=== PATIENT | female | born 1945 | race Caucasian/White ===

== ENCOUNTER 2016-05-04 15:21 | Emergency (ER) | payer OTHER ==
[~2016-05-04] VITALS: Ht 157.5 cm; Wt 104.9 kg
[~2016-05-04 15:21] MED LIST: ACIDOPHILUS-PE1 EACH PO; ACIDOPHILUS1 EAC2 PO; ADVAIR 100/501 DISK IH; ADVAIR 250/501 DISK IH; ADVAIR 500/501 DISK IH; ASPIR-TRIN325 MG PO; AVENTYL,PAMELOR25 MG PO; CALCIUM 500 +1 EACH PO; CALTRATE 6001 TABLE1 PO; CALTRATE600 MG PO; CELEXA40 MG PO; CHLORDIAZEPOXI1 EACH PO; CHLORDIAZEPOXIDE PO; CHOLESTYRAMINE P4 GM PO; CLIDINIUM PO; DRAMAMINE50 MG PO; ECOTRIN325 MG PO; ELAVIL10 MG PO; Ecotrin PO; FEOSOL325 MG PO; FIORICET 50-301 EACH PO; FISH OIL 1,0001 EACH PO; GLUCOPHAGE1000 M1 PO; Glucophage PO; HUMULIN R100 UNITS/; HUMULIN R100 UNITS/ SC; Humulin R SC; INSULIN PUMP SCCONT; IPRATR-ALBUTEROL3 ML IH; K-Dur PO; LANTUS 10100 UNITS/ SC; LASIX40 MG PO; LEVEMIR FL100 UNIT/1 SC; LEXAPRO10 MG PO; LEXAPRO20 MG PO; LIBRAX, CLI1 CAPSULE PO; LISINOPRIL40 MG PO; LITE COAT ASPI325 M1 PO; LORAZEPAM0.5 MG PO; METFORMIN HCL1000 M1 PO; METFORMIN HCL1000 MG PO; METOPROLOL SUC100 MG PO; NEXIUM 24HR20 MG PO; NOVOLIN N100 UNIT/1 SC; NOVOLIN N100 UNITS/ SC; NOVOLIN N100 UNITS/ SQ; NOVOLIN,HU100 UNITS1 SC; NOVOLOG PE100 UNITS/ SC; PREVACID 24HR15 MG PO; PRILOSEC20 MG PO; PROVENTIL HFA6.7 GM IH; PROVENTIL,200 INHALA IH; SIMVASTATIN40 MG PO; SINGULAIR10 MG PO; Singulair PO; THIAMINE,VITAM100 MG PO; TOVIAZ4 MG PO; TRAMADOL HCL50 MG PO; VITAMIN B-1100 MG PO; VITAMIN B-6100 MG PO; VITAMIN E400 UNIT PO; ZESTRIL,PRINIVI40 M1 PO; ZOCOR80 M1 PO; ZOFRAN ODT4 MG PO; Zestril,Prinivil PO; Zocor PO; celeXA PO
[2016-05-04 15:57] LABS: POINT-OF-CARE METER ID UU13113778; POINT-OF-CARE USER ID STWBNM43
[2016-05-04 16:30] LABS: HEMATOCRIT 40.6 % (36.0-46.0); MCH 28.8 PG (29.0-34.0); MCHC 34.5 G/DL (30.0-36.0); MCV 83.5 FL (83-99); MEAN PLAT.VOLUME 11.1 uM^3 (9.5-12.4); PLATELET COUNT 137 K/uL (156-360); RBC DIS.WIDTH-CV 14.3 % (11.8-14.6); RBC DIS.WIDTH-SD 43.1 % (39-53); RED BLOOD COUNT 4.86 M/uL (3.80-5.20)
[2016-05-04 16:37] LABS: CHLORIDE 96 mEq/L (99-109); POTASSIUM 4.3 mEq/L (3.7-5.4); SODIUM 130 mEq/L (136-147)
[2016-05-04 16:42] LABS: ALKALINE PHOSPHATASE 79 IU/L (3-129)
[2016-05-04 16:43] LABS: GFR ESTIMATE (CALCULATED) > 59 mL/min/
[2016-05-04 16:44] LABS: UREA NITROGEN (BUN) 18 mg/dL (9-23)
[2016-05-04 17:08] LABS: GLUCOSE 443 mg/dL (70-99)
[2016-05-04 17:17] LABS: ANION GAP 12 MEQ/L (2-14)
[2016-05-04 17:18] LABS: TOTAL BILIRUBIN 0.8 mg/dL (0.0-1.0)
[2016-05-04 20:27] VITALS: BP 109/62
== END 2016-05-04 20:29 | disposition home or self-care (01) ==
LOC: EME 15:21
PROVIDERS: Emergency Medicine
DX: E11.65 Type 2 diabetes mellitus with hyperglycemia (principal); Z96.41 Presence of insulin pump (external) (internal); Z79.4 Long term (current) use of insulin; E78.5 Hyperlipidemia, unspecified; I10 Essential (primary) hypertension; Z87.442 Personal history of urinary calculi; K21.9 Gastro-esophageal reflux disease without esophagitis
CPT/HCPCS: 80053; 81003; 82948; 85027; 99281; 99284; J1815; J7030

== ENCOUNTER 2016-07-03 11:41 | Inpatient (IN) | payer OTHER ==
[~2016-07-03] VITALS: Ht 160 cm; Wt 103.0 kg
[2016-07-03] VITALS (13 sets, daily range): BP systolic 137–216; BP diastolic 58–108
[2016-07-03 12:20] LABS: EOSINOPHIL (%) 1.5 % (0-5); EOSINOPHIL COUNT 0.1 K/uL (0-0.3); IMMATURE GRANULOCYTE (%) 0.1 % (0.0-0.7); IMMATURE GRANULOCYTE COUNT 0.1 K/uL; LYMPHOCYTE COUNT 1.5 K/uL (1.0-2.8); MCH 27.3 PG (29.0-34.0); MCHC 32.5 G/DL (30.0-36.0); MEAN PLAT.VOLUME 9.7 uM^3 (9.5-12.4); MONOCYTE (%) 10.7 % (3-12); MONOCYTE COUNT 0.8 K/uL (0-0.8); NEUTROPHIL (%) 66.5 % (45-76); NEUTROPHIL COUNT 4.9 K/uL (1.8-6.4); PLATELET COUNT 186 K/uL (156-360); RBC DIS.WIDTH-CV 14.1 % (11.8-14.6); RBC DIS.WIDTH-SD 41.2 % (39-53); RED BLOOD COUNT 3.81 M/uL (3.80-5.20); WHITE BLOOD COUNT 7.3 K/uL (4.1-10.2)
[2016-07-03 12:27] LABS: CHLORIDE 103 mEq/L (99-109); POTASSIUM 3.8 mEq/L (3.7-5.4); SODIUM 136 mEq/L (136-147)
[2016-07-03 12:29] LABS: GLUCOSE 129 mg/dL (70-99)
[2016-07-03 12:30] LABS: ANION GAP 9 MEQ/L (2-14)
[2016-07-03 12:31] LABS: TOTAL BILIRUBIN 0.8 mg/dL (0.0-1.0)
[2016-07-03 12:33] LABS: ALKALINE PHOSPHATASE 53 IU/L (3-129); GFR ESTIMATE (CALCULATED) > 59 mL/min/
[2016-07-03 12:34] LABS: UREA NITROGEN (BUN) 12 mg/dL (9-23)
[2016-07-03 12:38] LABS: ADD MIUA? YES; BILIRUBIN NEGATIVE; BLOOD NEGATIVE; COLOR YELLOW ((YELLOW)); GLUCOSE (STRIP) NEGATIVE; KETONES 5; LEUKOCYTES NEGATIVE; NITRITE NEGATIVE; PROTEIN (STRIP) 100; SPECIFIC GRAVITY 1.021 (1.000-1.030); UROBILINOGEN 0.2 MG/DL (0.2-1.0)
[2016-07-03 12:52] LABS: BACTERIA 1+ /HPF; EPITHELIAL CELLS RARE /HPF; HYALINE CASTS 0-5 /LPF; MUCUS 1+ /LPF; RED BLOOD CELLS 0-5 /HPF (0-5); UCUL ADDED? NO; UNCLASSIFIED CASTS 0-5 /LPF; WHITE BLOOD CELLS 0-5 /HPF (0-5)
[2016-07-03 14:35] LABS: C DIFF TOXIN NEGATIVE (NEGATIVE)
[2016-07-03] MEDS ORDERED: NOVOLOG 10100 UNITS/ SC ×2 (14:40→14:41)
[2016-07-03] MEDS ORDERED: HUMULIN N100 UNITS/ SC ×2 (14:44→14:45)
[2016-07-03] MEDS ORDERED: NEXIUM 24HR20 M1 PO (14:47)
[2016-07-03] MEDS ORDERED: TOPROL XL100 MG PO (14:49)
[2016-07-03] MEDS ORDERED: MONTELUKAST SOD10 MG PO (14:50)
[2016-07-03] MEDS ORDERED: ADVAIR 100/501 DISK IH (14:50)
[2016-07-03] MEDS ORDERED: VITAMIN B-6100 MG PO (14:51)
[2016-07-03] MEDS ORDERED: GLUCOPHAGE1000 MG PO (14:52)
[2016-07-03] MEDS ORDERED: CEFTIN500 MG PO (14:53)
[2016-07-03] MEDS ORDERED: LEXAPRO20 MG PO (14:54)
[2016-07-03] MEDS ORDERED: LISINOPRIL40 MG PO (14:55)
[2016-07-03] MEDS ORDERED: LORAZEPAM0.5 MG PO (14:56)
[2016-07-03] MEDS ORDERED: ZOCOR40 MG PO (14:56)
[2016-07-03] MEDS ORDERED: ASPIRIN325 MG PO (14:57)
[2016-07-03] MEDS ORDERED: ELAVIL10 MG PO (14:57)
[2016-07-03] MEDS ORDERED: KENALOG,ARISTOC80 GM TP (14:59)
[2016-07-03 15:01] LABS: PROBE CHECK PASS; SPECIMEN PROCESSING CONTROL PASS
[2016-07-03] MEDS ORDERED: CALCIUM 600 MG1 EACH PO (15:03)
[2016-07-03] MEDS ORDERED: NYATA15 GM TP (15:05)
[2016-07-03] MEDS ORDERED: ANTI-DIARRHEA2 MG PO (15:06)
[2016-07-03] MEDS ORDERED: LASIX40 MG PO (15:06)
[2016-07-03] MEDS ORDERED: BUTALBITAL-ACE1 EAC1 PO (15:07)
[2016-07-03] MEDS ORDERED: PROVENTIL HFA6.7 GM IH (15:08)
[2016-07-03] MEDS ORDERED: TYLENOL EXTRA500 MG PO (15:09)
[2016-07-03 16:39] LABS: INTER. NORMALIZED RATIO 1.2
[2016-07-04 03:44] VITALS: BP 184/78
[2016-07-04 06:10] LABS: HEMATOCRIT 32.8 % (36.0-46.0); MCH 26.4 PG (29.0-34.0); MCHC 31.4 G/DL (30.0-36.0); MCV 84.1 FL (83-99); RBC DIS.WIDTH-CV 14.3 % (11.8-14.6); RBC DIS.WIDTH-SD 43.3 % (39-53); WHITE BLOOD COUNT 7.2 K/uL (4.1-10.2)
[2016-07-04 06:32] LABS: ANION GAP 9 MEQ/L (2-14); CHLORIDE 100 MEQ/L (99-109); GFR ESTIMATE (CALCULATED) > 59 mL/min/; POTASSIUM 3.7 MEQ/L (3.7-5.4); SAMPLE HEMOLYSIS CHECK 0; SAMPLE ICTERIC CHECK 0; SAMPLE LIPEMIA CHECK 0; SODIUM 135 MEQ/L (136-147); UREA NITROGEN (BUN) 10 mg/dL (9-23)
[2016-07-04 06:36] LABS: GLUCOSE 198 mg/dL (70-99)
[2016-07-04 07:36] LABS: MEAN PLAT.VOLUME 10.3 uM^3 (9.5-12.4); PLATELET COUNT 174 K/uL (156-360)
[2016-07-04 08:18] VITALS: BP 191/74
[2016-07-04 11:36] VITALS: BP 189/86
[2016-07-04 17:37] LABS: POINT-OF-CARE METER ID UU14149397
[2016-07-04 19:58] VITALS: BP 160/67
[2016-07-04 22:17] LABS: POINT-OF-CARE METER ID UU14149397
[2016-07-05 00:29] VITALS: BP 135/63
[2016-07-05 04:08] VITALS: BP 125/82
[2016-07-05 08:16] VITALS: BP 173/72
[2016-07-05 08:47] LABS: HEMATOCRIT 32.4 % (36.0-46.0); MCH 26.4 PG (29.0-34.0); MCHC 31.5 G/DL (30.0-36.0); MCV 83.9 FL (83-99); MEAN PLAT.VOLUME 10.2 uM^3 (9.5-12.4); PLATELET COUNT 171 K/uL (156-360); RBC DIS.WIDTH-CV 14.5 % (11.8-14.6); RBC DIS.WIDTH-SD 43.9 % (39-53); RED BLOOD COUNT 3.86 M/uL (3.80-5.20); WHITE BLOOD COUNT 7.6 K/uL (4.1-10.2)
[2016-07-05 09:17] LABS: ALKALINE PHOSPHATASE 46 IU/L (3-129); ANION GAP 10 MEQ/L (2-14); CHLORIDE 101 MEQ/L (99-109); GFR ESTIMATE (CALCULATED) > 59 mL/min/; GLUCOSE 77 mg/dL (70-99); POTASSIUM 3.6 MEQ/L (3.7-5.4); SAMPLE HEMOLYSIS CHECK 0; SAMPLE ICTERIC CHECK 0; SAMPLE LIPEMIA CHECK 0; SODIUM 136 MEQ/L (136-147); TOTAL BILIRUBIN 0.7 MG/DL (0.0-1.0); UREA NITROGEN (BUN) 13 mg/dL (9-23)
[2016-07-05 11:41] VITALS: BP 165/73
[2016-07-05 16:38] VITALS: BP 191/78
[2016-07-05 17:01] LABS: C DIFF TOXIN ND (NEGATIVE)
[2016-07-05 23:19] LABS: POINT-OF-CARE METER ID UU14188577
[2016-07-05 23:29] VITALS: BP 184/76
[2016-07-06 06:40] LABS: POINT-OF-CARE METER ID UU14149397
[2016-07-06 07:45] VITALS: BP 188/80
[2016-07-06 08:10] VITALS: BP 182/86
[2016-07-06 11:55] LABS: POINT-OF-CARE METER ID UU14149397
[2016-07-06 17:00] VITALS: BP 169/70
[2016-07-06 21:52] LABS: POINT-OF-CARE METER ID UU14149397
[2016-07-07 00:13] VITALS: BP 175/75
[2016-07-07 05:57] LABS: HEMATOCRIT 34.7 % (36.0-46.0); MCH 26.6 PG (29.0-34.0); MCHC 31.7 G/DL (30.0-36.0); MEAN PLAT.VOLUME 10.2 uM^3 (9.5-12.4); PLATELET COUNT 170 K/uL (156-360); RBC DIS.WIDTH-CV 14.4 % (11.8-14.6); RBC DIS.WIDTH-SD 43.7 % (39-53); RED BLOOD COUNT 4.13 M/uL (3.80-5.20)
[2016-07-07 06:27] LABS: ALKALINE PHOSPHATASE 44 IU/L (3-129); ANION GAP 11 MEQ/L (2-14); CHLORIDE 103 MEQ/L (99-109); GFR ESTIMATE (CALCULATED) > 59 mL/min/; POTASSIUM 3.8 MEQ/L (3.7-5.4); SAMPLE HEMOLYSIS CHECK 0; SAMPLE ICTERIC CHECK 0; SAMPLE LIPEMIA CHECK 0; SODIUM 132 MEQ/L (136-147); TOTAL BILIRUBIN 0.6 MG/DL (0.0-1.0)
[2016-07-07 06:28] LABS: GLUCOSE 148 mg/dL (70-99); UREA NITROGEN (BUN) 21 mg/dL (9-23)
[2016-07-07 08:13] VITALS: BP 182/78
[2016-07-07 11:42] LABS: POINT-OF-CARE METER ID UU14149397; POINT-OF-CARE USER ID BHSLRM
[2016-07-07 14:23] VITALS: BP 165/60
[2016-07-07 17:33] LABS: POINT-OF-CARE METER ID UU14149397
[2016-07-07 22:37] LABS: POINT-OF-CARE METER ID UU14149397
[2016-07-07 23:47] VITALS: BP 135/62
[2016-07-08 06:51] LABS: POINT-OF-CARE METER ID UU14188577
[2016-07-08 07:00] LABS: ALKALINE PHOSPHATASE 46 IU/L (3-129); ANION GAP 9 MEQ/L (2-14); CHLORIDE 100 MEQ/L (99-109); GFR ESTIMATE (CALCULATED) > 59 mL/min/; POTASSIUM 3.5 MEQ/L (3.7-5.4); SAMPLE HEMOLYSIS CHECK 0; SAMPLE ICTERIC CHECK 0; SAMPLE LIPEMIA CHECK 0; SODIUM 134 MEQ/L (136-147); TOTAL BILIRUBIN 0.7 MG/DL (0.0-1.0); UREA NITROGEN (BUN) 22 mg/dL (9-23)
[2016-07-08 07:07] LABS: GLUCOSE 67 mg/dL (70-99)
[2016-07-08 07:14] VITALS: BP 198/84
[2016-07-08 12:00] LABS: POINT-OF-CARE METER ID UU14149397
[2016-07-08 16:19] VITALS: BP 156/67
[2016-07-08 17:02] LABS: POINT-OF-CARE METER ID UU14149397
[2016-07-09] VITALS: BP 139/71
[2016-07-09 07:17] LABS: POINT-OF-CARE METER ID UU14149397
[2016-07-09 08:17] VITALS: BP 152/82
[2016-07-09 10:50] LABS: ALKALINE PHOSPHATASE 48 IU/L (3-129); ANION GAP 10 MEQ/L (2-14); CHLORIDE 100 MEQ/L (99-109); GFR ESTIMATE (CALCULATED) > 59 mL/min/; POTASSIUM 3.9 MEQ/L (3.7-5.4); SAMPLE HEMOLYSIS CHECK 0; SAMPLE ICTERIC CHECK 0; SAMPLE LIPEMIA CHECK 0; SODIUM 133 MEQ/L (136-147); TOTAL BILIRUBIN 0.7 MG/DL (0.0-1.0); UREA NITROGEN (BUN) 26 mg/dL (9-23)
[2016-07-09 11:17] LABS: GLUCOSE 180 mg/dL (70-99)
[2016-07-09 16:38] VITALS: BP 172/73
[2016-07-09 23:41] VITALS: BP 155/67
[2016-07-10 05:58] LABS: HEMATOCRIT 37.1 % (36.0-46.0); MCH 26.1 PG (29.0-34.0); MCV 84.1 FL (83-99); MEAN PLAT.VOLUME 10.2 uM^3 (9.5-12.4); PLATELET COUNT 201 K/uL (156-360); RBC DIS.WIDTH-CV 14.1 % (11.8-14.6); RBC DIS.WIDTH-SD 42.9 % (39-53); RED BLOOD COUNT 4.41 M/uL (3.80-5.20); WHITE BLOOD COUNT 9.4 K/uL (4.1-10.2)
[2016-07-10 06:20] LABS: POINT-OF-CARE METER ID UU14149397
[2016-07-10 06:25] LABS: ALKALINE PHOSPHATASE 58 IU/L (3-129); ANION GAP 10 MEQ/L (2-14); CHLORIDE 97 MEQ/L (99-109); GFR ESTIMATE (CALCULATED) > 59 mL/min/; POTASSIUM 4.5 MEQ/L (3.7-5.4); SAMPLE HEMOLYSIS CHECK 0; SAMPLE ICTERIC CHECK 0; SAMPLE LIPEMIA CHECK 0; SODIUM 131 MEQ/L (136-147); TOTAL BILIRUBIN 0.8 MG/DL (0.0-1.0); UREA NITROGEN (BUN) 20 mg/dL (9-23)
[2016-07-10 06:27] LABS: GLUCOSE 316 mg/dL (70-99)
[2016-07-10 07:55] VITALS: BP 174/78
[2016-07-10] MEDS ORDERED: LEVETIRACETAM500 MG PO (11:22)
[2016-07-10] MEDS ORDERED: CLONIDINE HCL0.2 MG PO (11:22)
[2016-07-10] MEDS ORDERED: AMLODIPINE BESY10 MG PO (11:22)
[2016-07-10] MEDS ORDERED: K-DUR10 MEQ PO (11:23)
[2016-07-10] MEDS ORDERED: DECADRON1 MG PO (11:24)
[2016-07-10 11:53] LABS: POINT-OF-CARE METER ID UU14188577
[2016-07-14] MEDS ORDERED: TUBERSOL (06:22)
[2016-07-14] MEDS ORDERED: NOVOLOG PE100 UNITS/ SQ (06:24)
[2016-07-14] MEDS ORDERED: CLONIDINE HCL0.2 MG PO (06:26)
[2016-07-14] MEDS ORDERED: NEXIUM 24HR20 M1 PO (06:27)
[2016-07-14] MEDS ORDERED: ADVAIR 100/501 DISK IH (06:29)
[2016-07-14] MEDS ORDERED: CALCIUM 600 +1 EAC9 PO (06:31)
[2016-07-14] MEDS ORDERED: TYLENOL WITH C1 EACH PO (06:36)
[2016-07-14] MEDS ORDERED: MILK OF MAGN PO (06:37)
[2016-07-14] MEDS ORDERED: DULCOLAX10 MG PR (06:37)
[2016-07-14] MEDS ORDERED: ENEMA133 M2 PR (06:38)
[2016-07-14] MEDS ORDERED: LORAZEPAM0.5 MG PO (06:40)
[2016-07-14] MEDS ORDERED: SIMVASTATIN40 MG PO (06:40)
== END 2016-07-10 14:17 | DRG 66 ==
LOC: EME 11:41 → EDOF 16:00 → 3EAST 16:00
PROVIDERS: Emergency Medicine; Internal Medicine
DX: I62.00 Nontraumatic subdural hemorrhage, unspecified (principal); F03.90 Unspecified dementia, unspecified severity, without behavioral disturbance, psychotic disturbance, mood disturbance, and anxiety; E11.9 Type 2 diabetes mellitus without complications; I10 Essential (primary) hypertension; G89.29 Other chronic pain; E78.5 Hyperlipidemia, unspecified; K21.9 Gastro-esophageal reflux disease without esophagitis; Z99.81 Dependence on supplemental oxygen; F32.9 Major depressive disorder, single episode, unspecified; J45.909 Unspecified asthma, uncomplicated; R47.01 Aphasia
CPT/HCPCS: 70450; 71010; 80048; 80053; 81003; 82948; 85025; 85027; 85610; 87493; 87506; 92523 GN; 93005; 94640; 94640 76; 94799; 99202; 99281; 99285; J1815; J1953; J7050; J8540

== ENCOUNTER 2016-07-14 08:59 | Inpatient (IN) | payer OTHER ==
[2016-07-14] VITALS (9 sets, daily range): BP systolic 139–193; BP diastolic 40–85
[~2016-07-14] VITALS: Ht 154.9 cm; Wt 96.8 kg
[~2016-07-14 08:59] MED LIST changes: +AMLODIPINE BESY10 MG PO; +ANTI-DIARRHEA2 MG PO; +ASPIRIN325 MG PO; +BUTALBITAL-ACE1 EAC1 PO; +CALCIUM 600 +1 EAC9 PO; +CALCIUM 600 MG1 EACH PO; +CEFTIN500 MG PO; +CLONIDINE HCL0.2 MG PO; +DECADRON1 MG PO; +DULCOLAX10 MG PR; +ENEMA133 M2 PR; +GLUCOPHAGE1000 MG PO; +HUMULIN N100 UNITS/ SC; +K-DUR10 MEQ PO; +KENALOG,ARISTOC80 GM TP; +LEVETIRACETAM500 MG PO; +MILK OF MAGN PO; +MONTELUKAST SOD10 MG PO; +NEXIUM 24HR20 M1 PO; +NOVOLOG 10100 UNITS/ SC; +NOVOLOG PE100 UNITS/ SQ; +NYATA15 GM TP; +TOPROL XL100 MG PO; +TUBERSOL; +TYLENOL EXTRA500 MG PO; +TYLENOL WITH C1 EACH PO; +ZOCOR40 MG PO
[2016-07-14 10:55] LABS: POINT-OF-CARE METER ID UU14174212
[2016-07-14 11:08] LABS: METH RESISTANT S AUREUS PCR POSITIVE (NEGATIVE)
[2016-07-14 11:12] LABS: PROBE CHECK PASS
[2016-07-14 22:30] LABS: POINT-OF-CARE METER ID UU14174217; POINT-OF-CARE USER ID LABHNS84
[2016-07-15] VITALS (23 sets, daily range): BP systolic 128–175; BP diastolic 44–73
[2016-07-15 22:02] LABS: POINT-OF-CARE USER ID LABHNS84
[2016-07-16] VITALS (14 sets, daily range): BP systolic 111–153; BP diastolic 46–70
[2016-07-16 08:08] LABS: POINT-OF-CARE METER ID UU13113803
[2016-07-16 13:29] LABS: POINT-OF-CARE METER ID UU13113731
[2016-07-16 16:15] LABS: POINT-OF-CARE METER ID UU14149397
[2016-07-17 00:38] VITALS: BP 121/58
[2016-07-17 04:27] VITALS: BP 130/84
[2016-07-17 07:11] LABS: POINT-OF-CARE METER ID UU14149397
[2016-07-17 08:36] VITALS: BP 140/65
[2016-07-17 11:06] VITALS: BP 153/66
[2016-07-17 14:43] VITALS: BP 151/67
[2016-07-17 22:43] LABS: POINT-OF-CARE METER ID UU14149397
[2016-07-18 00:01] VITALS: BP 143/67
[2016-07-18 06:54] LABS: POINT-OF-CARE METER ID UU14188577
[2016-07-18 08:09] VITALS: BP 152/69
[2016-07-18 11:28] VITALS: BP 125/58
[2016-07-18 11:39] LABS: POINT-OF-CARE METER ID UU14188577
== END 2016-07-18 13:46 | DRG 25 ==
LOC: 2SOUTH 08:59 → 4WEST 09:44 → 2SOUTH 09:44 → 3EAST 09:44 → 2SOUTH 15:15 → 4WEST 17:15 → 3EAST 07-16 15:12
PROVIDERS: Neurological Surgery
PROC: 009400Z Drainage of Intracranial Subdural Space with Drainage Device, Open Approach (ICD-10-PCS; principal; 2016-07-14)
DX: I62.02 Nontraumatic subacute subdural hemorrhage (principal); G93.5 Compression of brain; F03.90 Unspecified dementia, unspecified severity, without behavioral disturbance, psychotic disturbance, mood disturbance, and anxiety; R47.01 Aphasia; R41.0 Disorientation, unspecified; E78.5 Hyperlipidemia, unspecified; I10 Essential (primary) hypertension; E11.9 Type 2 diabetes mellitus without complications; K76.0 Fatty (change of) liver, not elsewhere classified; Z87.820 Personal history of traumatic brain injury; Z79.4 Long term (current) use of insulin
CPT/HCPCS: 70450; 82948; 84295; 86850; 86900; 86901; 87641; 94640 76; 94799; C1713; J1100; J1170; J1720; J1815; J2250; J2270; J2405; J3010; J3480

== ENCOUNTER 2016-10-18 08:00 | Emergency (ER) | payer OTHER ==
[~2016-10-18] VITALS: Ht 157.5 cm; Wt 107.4 kg
[~2016-10-18 08:00] MED LIST changes: +AMARYL2 MG PO; +AQUAPHOR OINTM105 GM TP; +ATIVAN0.5 MG PO; +DOXYCYCLINE HY100 M3 PO; +FLORASTOR250 MG PO; +HYDROCORTISONE30 G3 TP; +IMODIUM A-D2 M2 PO; +KEPPRA500 MG PO; +LASIX20 MG PO; +LEVEMIR FL100 UNIT/1 SQ; +METFORMIN HCL1000 M3 PO; +MYCOSTATIN1 APPLICAT TP; +NEXIUM20 MG PO; +NORVASC10 MG PO; +PRAVASTATIN SOD80 MG PO; +PREPARATION H C51 G1 PR; +PREPARATION H O28 GM PR; +TYLENOL REGULA325 MG PO; +VENTOLIN HFA18 GM IH; +VITAMIN B-12250 MCG PO; +VITAMIN B122500 MCG PO; +WELCHOL625 MG PO
[2016-10-18 09:23] LABS: HEMATOCRIT 40.2 % (36.0-46.0); MCH 26.3 PG (29.0-34.0); MCHC 31.3 G/DL (30.0-36.0); MCV 83.9 FL (83-99); RBC DIS.WIDTH-CV 16.8 % (11.8-14.6); RED BLOOD COUNT 4.79 M/uL (3.80-5.20)
[2016-10-18 09:24] LABS: PLATELET COUNT 200 K/uL (156-360)
[2016-10-18 10:01] LABS: CHLORIDE 102 mEq/L (99-109); POTASSIUM 3.9 mEq/L (3.7-5.4); SODIUM 138 mEq/L (136-147)
[2016-10-18 10:03] LABS: GLUCOSE 300 mg/dL (70-99)
[2016-10-18 10:04] LABS: ANION GAP 11 MEQ/L (2-14)
[2016-10-18 10:07] LABS: GFR ESTIMATE (CALCULATED) > 59 mL/min/
[2016-10-18 10:08] LABS: UREA NITROGEN (BUN) 28 mg/dL (9-23)
[2016-10-18 13:01] VITALS: BP 125/56
== END 2016-10-18 13:30 | disposition home or self-care (01) ==
LOC: EME → EDBD 08:00 → EME 13:30
PROVIDERS: Emergency Medicine
DX: I87.2 Venous insufficiency (chronic) (peripheral) (principal); L97.219 Non-pressure chronic ulcer of right calf with unspecified severity; I10 Essential (primary) hypertension; E78.5 Hyperlipidemia, unspecified; E11.9 Type 2 diabetes mellitus without complications; Z79.4 Long term (current) use of insulin; Z86.14 Personal history of Methicillin resistant Staphylococcus aureus infection
CPT/HCPCS: 80048; 85027; 99281; 99284; J7030

== ENCOUNTER → 2016-10-24 | Outpatient (CLI) | payer OTHER | END | disposition home or self-care (01) | LOC: RAD 12:28 | DX: R90.82 White matter disease, unspecified (principal); Z87.898 Personal history of other specified conditions | CPT/HCPCS: 70450 ==

== ENCOUNTER 2016-10-31 18:12 | Emergency (ER) | payer OTHER ==
[~2016-10-31] VITALS: Ht 165.1 cm; Wt 113.2 kg
[2016-10-31 20:07] LABS: HEMATOCRIT 35.2 % (36.0-46.0); MCH 26.6 PG (29.0-34.0); MCHC 31.3 G/DL (30.0-36.0); MCV 85.2 FL (83-99); MEAN PLAT.VOLUME 9.7 uM^3 (9.5-12.4); PLATELET COUNT 237 K/uL (156-360); RBC DIS.WIDTH-CV 16.8 % (11.8-14.6); RBC DIS.WIDTH-SD 51.8 % (39-53); RED BLOOD COUNT 4.13 M/uL (3.80-5.20); WHITE BLOOD COUNT 8.9 K/uL (4.1-10.2)
[2016-10-31 20:12] LABS: ADD MIUA? YES; BILIRUBIN NEGATIVE; BLOOD SMALL; COLOR YELLOW ((YELLOW)); GLUCOSE (STRIP) NEGATIVE; KETONES NEGATIVE; LEUKOCYTES NEGATIVE; NITRITE NEGATIVE; PROTEIN (STRIP) NEGATIVE; SPECIFIC GRAVITY 1.014 (1.000-1.030); UROBILINOGEN 0.2 MG/DL (0.2-1.0)
[2016-10-31 20:19] LABS: CHLORIDE 102 mEq/L (99-109); POTASSIUM 4.2 mEq/L (3.7-5.4); SODIUM 139 mEq/L (136-147)
[2016-10-31 20:21] LABS: GLUCOSE 131 mg/dL (70-99)
[2016-10-31 20:23] LABS: ANION GAP 13 MEQ/L (2-14)
[2016-10-31 20:25] LABS: GFR ESTIMATE (CALCULATED) > 59 mL/min/
[2016-10-31 20:26] LABS: UREA NITROGEN (BUN) 22 mg/dL (9-23)
[2016-10-31 20:26] LABS: BACTERIA RARE /HPF; EPITHELIAL CELLS RARE /HPF; HYALINE CASTS 30-40 /LPF; MUCUS TRACE /LPF; RED BLOOD CELLS 0-5 /HPF (0-5); WHITE BLOOD CELLS 0-5 /HPF (0-5)
[2016-10-31 20:28] LABS: TROP-I INTERPRETATION NEGATIVE; TROPONIN-I < 0.01 ng/mL (0.0-0.30)
[2016-11-01 00:51] VITALS: BP 154/56
[2016-11-01] MEDS ORDERED: PERCOCET 5/31 TABLET PO (14:40)
[2016-11-01] MEDS ORDERED: BACLOFEN10 MG PO (14:41)
[2016-11-01] MEDS ORDERED: CALMOSEPTINE O120 GM TP (14:52)
[2016-11-01] MEDS ORDERED: ZEASORB POWDE70.9 GM TP (14:53)
[2016-11-01] MEDS ORDERED: CORTIZONE-1028 GM TP (14:55)
== END 2016-11-01 00:53 | disposition home or self-care (01) ==
LOC: EME 18:12
PROVIDERS: Emergency Medicine
DX: E86.0 Dehydration (principal); I62.03 Nontraumatic chronic subdural hemorrhage; I10 Essential (primary) hypertension; E11.9 Type 2 diabetes mellitus without complications; Z79.4 Long term (current) use of insulin; E78.5 Hyperlipidemia, unspecified; K21.9 Gastro-esophageal reflux disease without esophagitis; G47.30 Sleep apnea, unspecified; Z99.81 Dependence on supplemental oxygen; F32.9 Major depressive disorder, single episode, unspecified; Z87.442 Personal history of urinary calculi; Z88.0 Allergy status to penicillin; Z85.828 Personal history of other malignant neoplasm of skin
CPT/HCPCS: 70450; 80048; 81003; 83605; 84484; 85027; 87040; 87086; 99281; 99285; J7030

== ENCOUNTER 2016-11-01 12:19 | Inpatient (IN) | payer OTHER ==
[~2016-11-01] VITALS: Ht 127 cm; Wt 110.3 kg
[2016-11-01 13:40] LABS: EOSINOPHIL (%) 0.9 % (0-5); EOSINOPHIL COUNT 0.1 K/uL (0-0.3); HEMATOCRIT 37.6 % (36.0-46.0); IMMATURE GRANULOCYTE (%) 0.9 % (0.0-0.7); IMMATURE GRANULOCYTE COUNT 0.1 K/uL; INSTRUMENT ABS NEUTROPHIL CT 7.3 K/uL; MCH 26.4 PG (29.0-34.0); MCHC 30.6 G/DL (30.0-36.0); MCV 86.2 FL (83-99); MONOCYTE (%) 8.2 % (3-12); MONOCYTE COUNT 0.9 K/uL (0-0.8); NEUTROPHIL (%) 70.5 % (45-76); NEUTROPHIL COUNT 7.3 K/uL (1.8-6.4); NRBC (%) 0.2 /100 WBC (0-0); PLATELET COUNT 249 K/uL (156-360); RBC DIS.WIDTH-CV 16.9 % (11.8-14.6); RBC DIS.WIDTH-SD 51.9 % (39-53); RED BLOOD COUNT 4.36 M/uL (3.80-5.20); WHITE BLOOD COUNT 10.3 K/uL (4.1-10.2)
[2016-11-01 13:48] LABS: CHLORIDE 102 mEq/L (99-109); POTASSIUM 4.7 mEq/L (3.7-5.4); SODIUM 139 mEq/L (136-147)
[2016-11-01 13:51] LABS: ANION GAP 17 MEQ/L (2-14); GLUCOSE 238 mg/dL (70-99)
[2016-11-01 13:52] LABS: TOTAL BILIRUBIN 0.7 mg/dL (0.0-1.0)
[2016-11-01 13:53] LABS: ALKALINE PHOSPHATASE 131 IU/L (3-129)
[2016-11-01 13:54] LABS: GFR ESTIMATE (CALCULATED) > 59 mL/min/
[2016-11-01 13:55] LABS: UREA NITROGEN (BUN) 16 mg/dL (9-23)
[2016-11-01 13:57] LABS: CREATINE KINASE 66 IU/L (1-294); TOTAL CK 66 IU/L (1-294)
[2016-11-01 13:59] LABS: ADD MIUA? YES; BILIRUBIN NEGATIVE; BLOOD SMALL; COLOR YELLOW ((YELLOW)); GLUCOSE (STRIP) 150; KETONES 5; LEUKOCYTES TRACE; NITRITE POSITIVE; PROTEIN (STRIP) NEGATIVE; SPECIFIC GRAVITY 1.016 (1.000-1.030); UROBILINOGEN 0.2 MG/DL (0.2-1.0)
[2016-11-01 14:00] LABS: TROP-I INTERPRETATION NEGATIVE; TROPONIN-I < 0.01 ng/mL (0.0-0.30)
[2016-11-01 14:18] LABS: BACTERIA RARE /HPF; EPITHELIAL CELLS NONE SEEN /HPF; HYALINE CASTS 30-40 /LPF; MUCUS TRACE /LPF; RED BLOOD CELLS 0-5 /HPF (0-5); UCUL ADDED? NO; WHITE BLOOD CELLS 0-5 /HPF (0-5); WHITE CELL CASTS 0-5 /LPF
[2016-11-01] MEDS ORDERED: PERCOCET 5/31 TABLET PO (14:40)
[2016-11-01] MEDS ORDERED: BACLOFEN10 MG PO (14:41)
[2016-11-01] MEDS ORDERED: CALMOSEPTINE O120 GM TP (14:52)
[2016-11-01] MEDS ORDERED: ZEASORB POWDE70.9 GM TP (14:53)
[2016-11-01] MEDS ORDERED: CORTIZONE-1028 GM TP (14:55)
[2016-11-01 20:08] VITALS: BP 148/63
[2016-11-01 23:44] VITALS: BP 117/57
[2016-11-02 04:17] LABS: METH RESISTANT S AUREUS PCR NEGATIVE (NEGATIVE)
[2016-11-02 04:34] LABS: PROBE CHECK PASS; SPECIMEN PROCESSING CONTROL PASS
[2016-11-02 04:56] VITALS: BP 132/66
[2016-11-02 06:11] LABS: POINT-OF-CARE METER ID UU14149397
[2016-11-02 06:58] LABS: HEMATOCRIT 30.7 % (36.0-46.0); MCH 26.7 PG (29.0-34.0); MCHC 31.3 G/DL (30.0-36.0); MCV 85.3 FL (83-99); MEAN PLAT.VOLUME 9.6 uM^3 (9.5-12.4); PLATELET COUNT 195 K/uL (156-360); RBC DIS.WIDTH-CV 16.7 % (11.8-14.6); RBC DIS.WIDTH-SD 51.7 % (39-53); WHITE BLOOD COUNT 6.6 K/uL (4.1-10.2)
[2016-11-02 07:35] LABS: ANION GAP 11 MEQ/L (2-14); CHLORIDE 108 MEQ/L (99-109); POTASSIUM 3.8 MEQ/L (3.7-5.4); SAMPLE HEMOLYSIS CHECK 0; SAMPLE ICTERIC CHECK 0; SAMPLE LIPEMIA CHECK 0; SODIUM 141 MEQ/L (136-147); TOTAL BILIRUBIN 0.7 MG/DL (0.0-1.0)
[2016-11-02 07:40] LABS: ALKALINE PHOSPHATASE 90 IU/L (3-129); GFR ESTIMATE (CALCULATED) > 59 mL/min/; UREA NITROGEN (BUN) 13 mg/dL (9-23)
[2016-11-02 07:42] LABS: GLUCOSE 113 mg/dL (70-99)
[2016-11-02 08:41] VITALS: BP 123/58
[2016-11-02 11:52] LABS: POINT-OF-CARE METER ID UU14149397
[2016-11-02 12:12] VITALS: BP 153/67
[2016-11-02 16:26] LABS: POINT-OF-CARE METER ID UU14149397
[2016-11-02 16:36] VITALS: BP 109/55
[2016-11-02 19:54] VITALS: BP 144/67
[2016-11-02 21:45] LABS: POINT-OF-CARE METER ID UU14149397
[2016-11-02 23:42] VITALS: BP 104/53
[2016-11-03 03:56] VITALS: BP 100/48
[2016-11-03 06:28] LABS: HEMATOCRIT 31.1 % (36.0-46.0); MCH 27.6 PG (29.0-34.0); MCHC 31.5 G/DL (30.0-36.0); MCV 87.6 FL (83-99); MEAN PLAT.VOLUME 9.7 uM^3 (9.5-12.4); NRBC (%) 0.3 /100 WBC (0-0); PLATELET COUNT 224 K/uL (156-360); RBC DIS.WIDTH-CV 16.9 % (11.8-14.6); RBC DIS.WIDTH-SD 53.3 % (39-53); RED BLOOD COUNT 3.55 M/uL (3.80-5.20); WHITE BLOOD COUNT 6.7 K/uL (4.1-10.2)
[2016-11-03 06:42] LABS: POINT-OF-CARE METER ID UU14188577
[2016-11-03 06:51] LABS: ANION GAP 8 MEQ/L (2-14); CHLORIDE 108 MEQ/L (99-109); GFR ESTIMATE (CALCULATED) > 59 mL/min/; GLUCOSE 85 mg/dL (70-99); POTASSIUM 3.9 MEQ/L (3.7-5.4); SAMPLE HEMOLYSIS CHECK 0; SAMPLE ICTERIC CHECK 0; SAMPLE LIPEMIA CHECK 0; SODIUM 140 MEQ/L (136-147); UREA NITROGEN (BUN) 12 mg/dL (9-23)
[2016-11-03 07:57] VITALS: BP 138/63
[2016-11-03 12:17] LABS: POINT-OF-CARE METER ID UU14188577
[2016-11-03 12:36] VITALS: BP 109/55
[2016-11-03 16:26] VITALS: BP 119/58
[2016-11-03 17:06] LABS: POINT-OF-CARE METER ID UU14149397
[2016-11-03 22:23] LABS: POINT-OF-CARE METER ID UU14149397
[2016-11-03 23:24] VITALS: BP 104/66
[2016-11-04 04:42] VITALS: BP 116/61
[2016-11-04 08:37] VITALS: BP 116/58
[2016-11-04 11:11] VITALS: BP 91/49
[2016-11-04 15:06] VITALS: BP 111/59
[2016-11-04 19:37] VITALS: BP 138/61
[2016-11-05 00:24] VITALS: BP 136/61
[2016-11-05 06:20] LABS: POINT-OF-CARE METER ID UU14149397
[2016-11-05 07:07] LABS: HEMATOCRIT 31.8 % (36.0-46.0); MCH 28.1 PG (29.0-34.0); MCHC 32.1 G/DL (30.0-36.0); MCV 87.6 FL (83-99); MEAN PLAT.VOLUME 9.5 uM^3 (9.5-12.4); PLATELET COUNT 241 K/uL (156-360); RBC DIS.WIDTH-CV 16.7 % (11.8-14.6); RBC DIS.WIDTH-SD 53.1 % (39-53); RED BLOOD COUNT 3.63 M/uL (3.80-5.20); WHITE BLOOD COUNT 7.4 K/uL (4.1-10.2)
[2016-11-05 07:12] VITALS: BP 121/57
[2016-11-05 07:30] LABS: ANION GAP 11 MEQ/L (2-14); CHLORIDE 108 MEQ/L (99-109); GFR ESTIMATE (CALCULATED) > 59 mL/min/; GLUCOSE 81 mg/dL (70-99); POTASSIUM 4.1 MEQ/L (3.7-5.4); SAMPLE HEMOLYSIS CHECK 0; SAMPLE ICTERIC CHECK 0; SAMPLE LIPEMIA CHECK 0; SODIUM 139 MEQ/L (136-147); UREA NITROGEN (BUN) 14 mg/dL (9-23)
[2016-11-05 11:13] VITALS: BP 100/46
[2016-11-05 15:27] VITALS: BP 110/54
[2016-11-05 16:37] LABS: POINT-OF-CARE METER ID UU14149397
[2016-11-05 20:26] VITALS: BP 131/57
[2016-11-05 22:08] LABS: POINT-OF-CARE METER ID UU14149397
[2016-11-05 23:47] VITALS: BP 133/59
[2016-11-06 04:47] VITALS: BP 127/56
[2016-11-06 06:40] LABS: POINT-OF-CARE METER ID UU14149397
[2016-11-06 08:04] VITALS: BP 132/64
[2016-11-06 09:48] LABS: POINT-OF-CARE METER ID UU14149397
[2016-11-06 11:55] VITALS: BP 120/60
[2016-11-06 15:51] VITALS: BP 151/67
== END 2016-11-06 17:21 | DRG 602 ==
LOC: EME 12:19 → 3EAST 15:30 → EDOF 15:30 → 3EAST 19:23
PROVIDERS: Emergency Medicine; Family Medicine; Internal Medicine
DX: L03.115 Cellulitis of right lower limb (principal); L03.116 Cellulitis of left lower limb; I77.6 Arteritis, unspecified; E87.2 Acidosis; I25.10 Atherosclerotic heart disease of native coronary artery without angina pectoris; E11.622 Type 2 diabetes mellitus with other skin ulcer; F32.9 Major depressive disorder, single episode, unspecified; I11.0 Hypertensive heart disease with heart failure; S06.5X9A Traumatic subdural hemorrhage with loss of consciousness of unspecified duration, initial encounter; Z68.44 Body mass index [BMI] 60.0-69.9, adult; G40.909 Epilepsy, unspecified, not intractable, without status epilepticus; I50.9 Heart failure, unspecified; J44.9 Chronic obstructive pulmonary disease, unspecified; F03.90 Unspecified dementia, unspecified severity, without behavioral disturbance, psychotic disturbance, mood disturbance, and anxiety; M19.90 Unspecified osteoarthritis, unspecified site; F41.9 Anxiety disorder, unspecified; D64.9 Anemia, unspecified; M06.9 Rheumatoid arthritis, unspecified; E66.9 Obesity, unspecified; I83.009 Varicose veins of unspecified lower extremity with ulcer of unspecified site
CPT/HCPCS: 70450; 71010; 73590; 80048; 80053; 80202; 81003; 82550; 82553; 82948; 83605; 84484; 85025; 85027; 87040; 87070; 87075; 87086; 87205; 87641; 93005; 94760; 94799; 99202; 99281; 99285; A6260; J0692; J1630; J1644; J1815; J3370; J7030; J7050

== ENCOUNTER 2016-11-13 10:19 | Inpatient (IN) | payer OTHER ==
[~2016-11-13] VITALS: Ht 157.5 cm; Wt 109.7 kg
[~2016-11-13 10:19] MED LIST changes: +BACLOFEN10 MG PO; +CALMOSEPTINE O120 GM TP; +CORTIZONE-1028 GM TP; +PERCOCET 5/31 TABLET PO; +ZEASORB POWDE70.9 GM TP
[2016-11-13 11:59] LABS: MCH 26.5 PG (29.0-34.0); MCHC 30.8 G/DL (30.0-36.0); MCV 85.8 FL (83-99); MEAN PLAT.VOLUME 9.6 uM^3 (9.5-12.4); PLATELET COUNT 275 K/uL (156-360); RBC DIS.WIDTH-CV 16.2 % (11.8-14.6); RBC DIS.WIDTH-SD 51.3 % (39-53); RED BLOOD COUNT 4.31 M/uL (3.80-5.20); WHITE BLOOD COUNT 12.7 K/uL (4.1-10.2)
[2016-11-13 12:10] LABS: CHLORIDE 111 mEq/L (99-109); POTASSIUM 4.7 mEq/L (3.7-5.4); SODIUM 141 mEq/L (136-147)
[2016-11-13 12:14] LABS: ANION GAP 16 MEQ/L (2-14)
[2016-11-13 12:16] LABS: GFR ESTIMATE (CALCULATED) 52 mL/min/
[2016-11-13 12:17] LABS: UREA NITROGEN (BUN) 19 mg/dL (9-23)
[2016-11-13 12:19] LABS: GLUCOSE 407 mg/dL (70-99)
[2016-11-13 12:22] LABS: TROP-I INTERPRETATION NEGATIVE; TROPONIN-I 0.02 ng/mL (0.0-0.30)
[2016-11-13 14:05] LABS: POINT-OF-CARE METER ID UU13113702
[2016-11-13 14:32] LABS: CHLORIDE 112 mEq/L (99-109); POTASSIUM 4.6 mEq/L (3.7-5.4); SODIUM 143 mEq/L (136-147)
[2016-11-13 14:34] LABS: GLUCOSE 369 mg/dL (70-99)
[2016-11-13 14:35] LABS: ANION GAP 20 MEQ/L (2-14)
[2016-11-13 14:38] LABS: GFR ESTIMATE (CALCULATED) 52 mL/min/; UREA NITROGEN (BUN) 18 mg/dL (9-23)
[2016-11-13] MEDS ORDERED: LASIX20 MG PO (15:52)
[2016-11-13] MEDS ORDERED: LASIX40 MG PO (15:54)
[2016-11-13] MEDS ORDERED: FERROUS SULFAT325 MG PO (15:59)
[2016-11-13] MEDS ORDERED: OMEPRAZOLE20 MG PO (16:01)
[2016-11-13] MEDS ORDERED: DULCOLAX10 MG PR (16:02)
[2016-11-13] MEDS ORDERED: MILK OF MAGN PO (16:02)
[2016-11-13] MEDS ORDERED: VENTOLIN HFA18 GM IH (16:03)
[2016-11-13 16:05] LABS: POINT-OF-CARE METER ID UU13113702; POINT-OF-CARE USER ID 608261302
[2016-11-13 17:13] LABS: POINT-OF-CARE METER ID UU13113702
[2016-11-13 18:31] VITALS: BP 148/60
[2016-11-13 18:46] LABS: POINT-OF-CARE METER ID UU13113731
[2016-11-13 19:00] VITALS: BP 170/77
[2016-11-13 19:45] LABS: METH RESISTANT S AUREUS PCR NEGATIVE (NEGATIVE)
[2016-11-13 19:48] LABS: PROBE CHECK PASS; SPECIMEN PROCESSING CONTROL PASS
[2016-11-13 19:52] LABS: POINT-OF-CARE METER ID UU13113731
[2016-11-13 20:00] VITALS: BP 185/83
[2016-11-13 20:30] LABS: POINT-OF-CARE METER ID UU13113731
[2016-11-13 21:00] VITALS: BP 168/50
[2016-11-13 21:16] LABS: ADD MIUA? YES; BILIRUBIN NEGATIVE; BLOOD MODERATE; COLOR YELLOW ((YELLOW)); GLUCOSE (STRIP) >=500; KETONES 20; LEUKOCYTES LARGE; NITRITE NEGATIVE; PROTEIN (STRIP) 30; UROBILINOGEN 0.2 MG/DL (0.2-1.0)
[2016-11-13 21:16] LABS: ALKALINE PHOSPHATASE 125 IU/L (3-129); ANION GAP 16 MEQ/L (2-14); CHLORIDE 111 MEQ/L (99-109); DIRECT BILIRUBIN 0.1 mg/dL (0.0-0.3); GFR ESTIMATE (CALCULATED) > 59 mL/min/; GLUCOSE 270 mg/dL (70-99); POTASSIUM 4.7 MEQ/L (3.7-5.4); SAMPLE HEMOLYSIS CHECK 1; SAMPLE ICTERIC CHECK 0; SAMPLE LIPEMIA CHECK 0; SODIUM 140 MEQ/L (136-147); TOTAL BILIRUBIN 0.4 MG/DL (0.0-1.0); UREA NITROGEN (BUN) 19 mg/dL (9-23)
[2016-11-13 21:50] LABS: POINT-OF-CARE METER ID UU13113731
[2016-11-13 22:00] VITALS: BP 117/56
[2016-11-13 22:11] LABS: CASTS NONE SEEN /LPF; EPITHELIAL CELLS 1+ /HPF; MUCUS NONE SEEN /LPF
[2016-11-13 22:12] LABS: RED BLOOD CELLS NONE SEEN /HPF (0-5); WHITE BLOOD CELLS TNTC /HPF (0-5)
[2016-11-13 22:13] LABS: BACTERIA RARE /HPF; UCUL ADDED? YES
[2016-11-13 22:55] LABS: POINT-OF-CARE METER ID UU13113731
[2016-11-13 23:00] VITALS: BP 142/69
[2016-11-13 23:41] LABS: POINT-OF-CARE METER ID UU13113748
[2016-11-14] VITALS (16 sets, daily range): BP systolic 137–196; BP diastolic 53–89
[2016-11-14 00:47] LABS: POINT-OF-CARE METER ID UU13113731
[2016-11-14 00:54] LABS: CHLORIDE 115 mEq/L (99-109); POTASSIUM 3.9 mEq/L (3.7-5.4); SODIUM 144 mEq/L (136-147)
[2016-11-14 00:56] LABS: GLUCOSE 161 mg/dL (70-99)
[2016-11-14 00:57] LABS: ANION GAP 10 MEQ/L (2-14)
[2016-11-14 01:00] LABS: GFR ESTIMATE (CALCULATED) > 59 mL/min/
[2016-11-14 01:01] LABS: UREA NITROGEN (BUN) 18 mg/dL (9-23)
[2016-11-14 01:39] LABS: POINT-OF-CARE METER ID UU13113748
[2016-11-14 02:41] LABS: POINT-OF-CARE METER ID UU13113748
[2016-11-14 03:40] LABS: POINT-OF-CARE METER ID UU13113748
[2016-11-14 05:54] LABS: POINT-OF-CARE METER ID UU13113748
[2016-11-14 06:01] LABS: EOSINOPHIL (%) 0.6 % (0-5); EOSINOPHIL COUNT 0.1 K/uL (0-0.3); HEMATOCRIT 32.6 % (36.0-46.0); IMMATURE GRANULOCYTE (%) 0.5 % (0.0-0.7); IMMATURE GRANULOCYTE COUNT 0.1 K/uL; INSTRUMENT ABS NEUTROPHIL CT 6.7 K/uL; LYMPHOCYTE COUNT 1.8 K/uL (1.0-2.8); MCH 26.3 PG (29.0-34.0); MCV 84.9 FL (83-99); MEAN PLAT.VOLUME 9.5 uM^3 (9.5-12.4); MONOCYTE (%) 8.2 % (3-12); MONOCYTE COUNT 0.8 K/uL (0-0.8); NEUTROPHIL (%) 70.8 % (45-76); NEUTROPHIL COUNT 6.7 K/uL (1.8-6.4); PLATELET COUNT 242 K/uL (156-360); RBC DIS.WIDTH-CV 16.4 % (11.8-14.6); RBC DIS.WIDTH-SD 51.2 % (39-53); RED BLOOD COUNT 3.84 M/uL (3.80-5.20); WHITE BLOOD COUNT 9.5 K/uL (4.1-10.2)
[2016-11-14 06:31] LABS: ANION GAP 10 MEQ/L (2-14); CHLORIDE 113 MEQ/L (99-109); GFR ESTIMATE (CALCULATED) > 59 mL/min/; GLUCOSE 137 mg/dL (70-99); MAGNESIUM 1.9 mg/dl (1.3-2.7); POTASSIUM 3.5 MEQ/L (3.7-5.4); SAMPLE HEMOLYSIS CHECK 0; SAMPLE ICTERIC CHECK 0; SAMPLE LIPEMIA CHECK 0; SODIUM 143 MEQ/L (136-147); UREA NITROGEN (BUN) 17 mg/dL (9-23)
[2016-11-14 09:00] LABS: ANION GAP 11 MEQ/L (2-14); CHLORIDE 111 MEQ/L (99-109); GFR ESTIMATE (CALCULATED) > 59 mL/min/; GLUCOSE 138 mg/dL (70-99); POTASSIUM 3.6 MEQ/L (3.7-5.4); SAMPLE HEMOLYSIS CHECK 0; SAMPLE ICTERIC CHECK 0; SAMPLE LIPEMIA CHECK 0; SODIUM 142 MEQ/L (136-147); UREA NITROGEN (BUN) 17 mg/dL (9-23)
[2016-11-14 10:31] LABS: POINT-OF-CARE METER ID UU14208751
[2016-11-14 16:56] LABS: POINT-OF-CARE METER ID UU14208751
[2016-11-14 23:53] LABS: POINT-OF-CARE METER ID UU14174217
[2016-11-15] VITALS (8 sets, daily range): BP systolic 134–158; BP diastolic 48–72
[2016-11-15 05:38] LABS: EOSINOPHIL (%) 2.1 % (0-5); EOSINOPHIL COUNT 0.2 K/uL (0-0.3); HEMATOCRIT 31.4 % (36.0-46.0); IMMATURE GRANULOCYTE (%) 0.5 % (0.0-0.7); INSTRUMENT ABS NEUTROPHIL CT 5.7 K/uL; LYMPHOCYTE COUNT 1.6 K/uL (1.0-2.8); MCH 25.9 PG (29.0-34.0); MCHC 29.9 G/DL (30.0-36.0); MCV 86.5 FL (83-99); MEAN PLAT.VOLUME 9.7 uM^3 (9.5-12.4); MONOCYTE (%) 7.7 % (3-12); MONOCYTE COUNT 0.6 K/uL (0-0.8); NEUTROPHIL (%) 70.2 % (45-76); NEUTROPHIL COUNT 5.7 K/uL (1.8-6.4); PLATELET COUNT 216 K/uL (156-360); RBC DIS.WIDTH-CV 16.4 % (11.8-14.6); RBC DIS.WIDTH-SD 51.7 % (39-53); RED BLOOD COUNT 3.63 M/uL (3.80-5.20); WHITE BLOOD COUNT 8.2 K/uL (4.1-10.2)
[2016-11-15 06:36] LABS: ANION GAP 7 MEQ/L (2-14); CHLORIDE 110 MEQ/L (99-109); GFR ESTIMATE (CALCULATED) > 59 mL/min/; GLUCOSE 185 mg/dL (70-99); MAGNESIUM 1.7 mg/dl (1.3-2.7); POTASSIUM 3.7 MEQ/L (3.7-5.4); SAMPLE HEMOLYSIS CHECK 0; SAMPLE ICTERIC CHECK 0; SAMPLE LIPEMIA CHECK 0; SODIUM 140 MEQ/L (136-147); UREA NITROGEN (BUN) 16 mg/dL (9-23)
[2016-11-15 09:59] LABS: POINT-OF-CARE METER ID UU14208751
[2016-11-15 11:23] LABS: POINT-OF-CARE METER ID UU13113725
[2016-11-15 16:39] LABS: POINT-OF-CARE METER ID UU13113725
[2016-11-15 21:03] LABS: POINT-OF-CARE METER ID UU13113725
[2016-11-16 03:46] VITALS: BP 159/88
[2016-11-16 06:10] LABS: POINT-OF-CARE METER ID UU13113725
[2016-11-16 07:06] LABS: ANION GAP 9 MEQ/L (2-14); BASOPHIL COUNT 0.1 K/uL (0-0.1); CHLORIDE 111 MEQ/L (99-109); EOSINOPHIL (%) 2.3 % (0-5); EOSINOPHIL COUNT 0.2 K/uL (0-0.3); GFR ESTIMATE (CALCULATED) > 59 mL/min/; GLUCOSE 114 mg/dL (70-99); HEMATOCRIT 33.3 % (36.0-46.0); IMMATURE GRANULOCYTE COUNT 0.1 K/uL; INSTRUMENT ABS NEUTROPHIL CT 5.5 K/uL; LYMPHOCYTE COUNT 1.8 K/uL (1.0-2.8); MAGNESIUM 1.6 mg/dl (1.3-2.7); MCH 27.6 PG (29.0-34.0); MCHC 32.4 G/DL (30.0-36.0); MCV 85.2 FL (83-99); MEAN PLAT.VOLUME 10.3 uM^3 (9.5-12.4); MONOCYTE (%) 8.4 % (3-12); MONOCYTE COUNT 0.7 K/uL (0-0.8); NEUTROPHIL (%) 66.1 % (45-76); NEUTROPHIL COUNT 5.5 K/uL (1.8-6.4); PLATELET COUNT 230 K/uL (156-360); POTASSIUM 3.9 MEQ/L (3.7-5.4); RBC DIS.WIDTH-CV 16.4 % (11.8-14.6); RED BLOOD COUNT 3.91 M/uL (3.80-5.20); SAMPLE HEMOLYSIS CHECK 0; SAMPLE ICTERIC CHECK 0; SAMPLE LIPEMIA CHECK 0; SODIUM 140 MEQ/L (136-147); UREA NITROGEN (BUN) 15 mg/dL (9-23); WHITE BLOOD COUNT 8.3 K/uL (4.1-10.2)
[2016-11-16 08:02] VITALS: BP 130/60
[2016-11-16 11:37] LABS: POINT-OF-CARE METER ID UU13113725
[2016-11-16 11:56] VITALS: BP 139/83
[2016-11-16 15:52] VITALS: BP 147/65
[2016-11-16 16:34] LABS: POINT-OF-CARE METER ID UU13113725
[2016-11-16 22:17] LABS: POINT-OF-CARE METER ID UU13113725; POINT-OF-CARE USER ID 610071303
[2016-11-16 23:07] VITALS: BP 157/67
[2016-11-17 05:53] LABS: POINT-OF-CARE METER ID UU13113725; POINT-OF-CARE USER ID 608261329
[2016-11-17 06:33] LABS: EOSINOPHIL (%) 2.5 % (0-5); EOSINOPHIL COUNT 0.2 K/uL (0-0.3); HEMATOCRIT 31.6 % (36.0-46.0); IMMATURE GRANULOCYTE (%) 0.6 % (0.0-0.7); INSTRUMENT ABS NEUTROPHIL CT 3.7 K/uL; LYMPHOCYTE COUNT 1.8 K/uL (1.0-2.8); MCH 27.3 PG (29.0-34.0); MCHC 31.3 G/DL (30.0-36.0); MCV 87.3 FL (83-99); MEAN PLAT.VOLUME 9.9 uM^3 (9.5-12.4); MONOCYTE (%) 10.7 % (3-12); MONOCYTE COUNT 0.7 K/uL (0-0.8); NEUTROPHIL (%) 57.6 % (45-76); NEUTROPHIL COUNT 3.7 K/uL (1.8-6.4); PLATELET COUNT 185 K/uL (156-360); RBC DIS.WIDTH-CV 16.2 % (11.8-14.6); RED BLOOD COUNT 3.62 M/uL (3.80-5.20); WHITE BLOOD COUNT 6.5 K/uL (4.1-10.2)
[2016-11-17 06:50] VITALS: BP 169/74
[2016-11-17 06:58] LABS: ANION GAP 8 MEQ/L (2-14); CHLORIDE 108 MEQ/L (99-109); GFR ESTIMATE (CALCULATED) > 59 mL/min/; GLUCOSE 124 mg/dL (70-99); MAGNESIUM 1.4 mg/dl (1.3-2.7); POTASSIUM 3.9 MEQ/L (3.7-5.4); SAMPLE HEMOLYSIS CHECK 0; SAMPLE ICTERIC CHECK 0; SAMPLE LIPEMIA CHECK 0; SODIUM 138 MEQ/L (136-147); UREA NITROGEN (BUN) 14 mg/dL (9-23)
[2016-11-17 11:24] LABS: POINT-OF-CARE METER ID UU13113725
[2016-11-17 15:31] VITALS: BP 173/72
[2016-11-17 16:17] LABS: POINT-OF-CARE METER ID UU13113725
[2016-11-17 20:00] VITALS: BP 174/72
[2016-11-17 21:32] LABS: POINT-OF-CARE METER ID UU13113725
[2016-11-18 00:05] VITALS: BP 150/65
[2016-11-18 06:22] LABS: EOSINOPHIL (%) 1.6 % (0-5); EOSINOPHIL COUNT 0.1 K/uL (0-0.3); HEMATOCRIT 32.6 % (36.0-46.0); IMMATURE GRANULOCYTE (%) 0.5 % (0.0-0.7); INSTRUMENT ABS NEUTROPHIL CT 5.1 K/uL; LYMPHOCYTE COUNT 1.8 K/uL (1.0-2.8); MCH 25.8 PG (29.0-34.0); MCHC 30.1 G/DL (30.0-36.0); MCV 85.8 FL (83-99); MONOCYTE (%) 8.2 % (3-12); MONOCYTE COUNT 0.6 K/uL (0-0.8); NEUTROPHIL (%) 66.1 % (45-76); NEUTROPHIL COUNT 5.1 K/uL (1.8-6.4); PLATELET COUNT 199 K/uL (156-360); RBC DIS.WIDTH-CV 15.9 % (11.8-14.6); RBC DIS.WIDTH-SD 49.8 % (39-53); WHITE BLOOD COUNT 7.6 K/uL (4.1-10.2)
[2016-11-18 07:10] LABS: ANION GAP 8 MEQ/L (2-14); CHLORIDE 107 MEQ/L (99-109); GFR ESTIMATE (CALCULATED) > 59 mL/min/; GLUCOSE 163 mg/dL (70-99); MAGNESIUM 1.3 mg/dl (1.3-2.7); POTASSIUM 4.3 MEQ/L (3.7-5.4); SAMPLE HEMOLYSIS CHECK 0; SAMPLE ICTERIC CHECK 0; SAMPLE LIPEMIA CHECK 0; SODIUM 138 MEQ/L (136-147); UREA NITROGEN (BUN) 13 mg/dL (9-23)
[2016-11-18 07:56] VITALS: BP 168/77
[2016-11-18 12:06] LABS: POINT-OF-CARE METER ID UU13113725
[2016-11-18] MEDS ORDERED: DOXYCYCLINE HY100 M3 PO (15:05)
[2016-11-18] MEDS ORDERED: Zeasorb Antifungal T TP (15:11)
[2016-11-18] MEDS ORDERED: NOVOLOG PE100 UNITS/ SC (15:11)
[2016-11-18] MEDS ORDERED: PERCOCET 5/31 TABLET PO (15:12)
[2016-11-18] MEDS ORDERED: ATIVAN0.5 MG PO (15:12)
== END 2016-11-18 20:09 | DRG 638 ==
LOC: EME → EDBD 10:19 → EDOF 17:19 → 4WEST 17:19 → 5EAST 11-15 10:55
PROVIDERS: Emergency Medicine; Family Medicine; Internal Medicine Nephrology
DX: E13.10 Other specified diabetes mellitus with ketoacidosis without coma (principal); N17.9 Acute kidney failure, unspecified; J96.11 Chronic respiratory failure with hypoxia; L03.115 Cellulitis of right lower limb; L03.116 Cellulitis of left lower limb; F33.9 Major depressive disorder, recurrent, unspecified; F03.90 Unspecified dementia, unspecified severity, without behavioral disturbance, psychotic disturbance, mood disturbance, and anxiety; Z68.41 Body mass index [BMI] 40.0-44.9, adult; B37.2 Candidiasis of skin and nail; E11.42 Type 2 diabetes mellitus with diabetic polyneuropathy; D64.9 Anemia, unspecified; M19.90 Unspecified osteoarthritis, unspecified site; E11.51 Type 2 diabetes mellitus with diabetic peripheral angiopathy without gangrene; E11.622 Type 2 diabetes mellitus with other skin ulcer; E78.5 Hyperlipidemia, unspecified; E83.39 Other disorders of phosphorus metabolism; E83.42 Hypomagnesemia; E86.0 Dehydration; E86.1 Hypovolemia; F41.9 Anxiety disorder, unspecified; G40.909 Epilepsy, unspecified, not intractable, without status epilepticus; G47.30 Sleep apnea, unspecified; I10 Essential (primary) hypertension; I25.10 Atherosclerotic heart disease of native coronary artery without angina pectoris; L97.909 Non-pressure chronic ulcer of unspecified part of unspecified lower leg with unspecified severity; J44.9 Chronic obstructive pulmonary disease, unspecified; K21.9 Gastro-esophageal reflux disease without esophagitis; K58.0 Irritable bowel syndrome with diarrhea; R29.6 Repeated falls; D18.1 Lymphangioma, any site; S00.03XA Contusion of scalp, initial encounter; W18.30XA Fall on same level, unspecified, initial encounter; Y92.129 Unspecified place in nursing home as the place of occurrence of the external cause; Z79.4 Long term (current) use of insulin; Z85.828 Personal history of other malignant neoplasm of skin; Z86.73 Personal history of transient ischemic attack (TIA), and cerebral infarction without residual deficits; Z87.11 Personal history of peptic ulcer disease; Z87.442 Personal history of urinary calculi; Z95.5 Presence of coronary angioplasty implant and graft; N39.0 Urinary tract infection, site not specified; R00.0 Tachycardia, unspecified; E66.9 Obesity, unspecified
CPT/HCPCS: 70450; 71020; 72125; 72170; 80048; 80048 91; 80076; 81003; 82010; 82803; 82948; 83605; 83735; 84100; 84484; 85025; 85027; 87086; 87641; 93005; 94799; 99202; 99281; 99285; J0692; J1644; J1815; J2405; J3370; J3475; J7030; J7050; J7120

== ENCOUNTER 2017-02-15 16:19 | Inpatient (IN) | payer OTHER ==
[~2017-02-15] VITALS: Ht 162.6 cm; Wt 104.8 kg
[~2017-02-15 16:19] MED LIST changes: +FERROUS SULFAT325 MG PO; +OMEPRAZOLE20 MG PO; +Zeasorb Antifungal T TP
[2017-02-15 17:35] LABS: EOSINOPHIL (%) 0.1 % (0-5); HEMATOCRIT 36.2 % (36.0-46.0); IMMATURE GRANULOCYTE (%) 0.5 % (0.0-0.7); IMMATURE GRANULOCYTE COUNT 0.1 K/uL; INSTRUMENT ABS NEUTROPHIL CT 9.3 K/uL; LYMPHOCYTE COUNT 1.8 K/uL (1.0-2.8); MCH 27.5 PG (29.0-34.0); MCHC 31.5 G/DL (30.0-36.0); MCV 87.2 FL (83-99); MEAN PLAT.VOLUME 10.4 uM^3 (9.5-12.4); MONOCYTE (%) 4.7 % (3-12); MONOCYTE COUNT 0.6 K/uL (0-0.8); NEUTROPHIL (%) 79.1 % (45-76); NEUTROPHIL COUNT 9.3 K/uL (1.8-6.4); PLATELET COUNT 322 K/uL (156-360); RBC DIS.WIDTH-CV 19.3 % (11.8-14.6); RBC DIS.WIDTH-SD 60.1 % (39-53); RED BLOOD COUNT 4.15 M/uL (3.80-5.20); WHITE BLOOD COUNT 11.8 K/uL (4.1-10.2)
[2017-02-15 17:44] LABS: CHLORIDE 115 mEq/L (99-109); INTER. NORMALIZED RATIO 1.4; PROTHROMBIN TIME 15.6 SEC (10.2-12.9); SODIUM 144 mEq/L (136-147)
[2017-02-15 17:47] LABS: GLUCOSE 178 mg/dL (70-99); PTT 36.3 SEC (25-37)
[2017-02-15 17:48] LABS: ANION GAP 18 MEQ/L (2-14); TOTAL BILIRUBIN 0.5 mg/dL (0.0-1.0)
[2017-02-15 17:50] LABS: ALKALINE PHOSPHATASE 156 IU/L (3-129); GFR ESTIMATE (CALCULATED) 12 mL/min/
[2017-02-15 17:51] LABS: UREA NITROGEN (BUN) 49 mg/dL (9-23)
[2017-02-15 17:52] LABS: DIRECT BILIRUBIN 0.4 mg/dL (0.0-0.3)
[2017-02-15 17:56] LABS: TROP-I INTERPRETATION NEGATIVE; TROPONIN-I 0.03 ng/mL (0.0-0.30)
[2017-02-15 17:59] LABS: POTASSIUM 6.9 mEq/L (3.7-5.4)
[2017-02-15 18:39] LABS: ADD MIUA? YES; BILIRUBIN NEGATIVE; BLOOD MODERATE; COLOR AMBER ((YELLOW)); GLUCOSE (STRIP) NEGATIVE; KETONES NEGATIVE; LEUKOCYTES LARGE; NITRITE NEGATIVE; PROTEIN (STRIP) 30; SPECIFIC GRAVITY 1.017 (1.000-1.030); UROBILINOGEN 0.2 MG/DL (0.2-1.0)
[2017-02-15 18:46] LABS: BACTERIA 1+ /HPF; BUDDING YEAST 4+; EPITHELIAL CELLS RARE /HPF; MUCUS TRACE /LPF; RED BLOOD CELLS 15-20 /HPF (0-5); UCUL ADDED? YES; WHITE BLOOD CELLS TNTC /HPF (0-5); WHITE BLOOD CELLS CLUMP FEW /HPF (0-5)
[2017-02-15 19:27] LABS: CREATINE KINASE 33 IU/L (1-294)
[2017-02-15] MEDS ORDERED: BASAGLAR K100 UNIT/1 SC ×2 (20:46→21:03)
[2017-02-15] MEDS ORDERED: HUMALOG100 UNIT/2 SC (20:52)
[2017-02-15] MEDS ORDERED: LASIX40 MG/4 ML IV (20:54)
[2017-02-15] MEDS ORDERED: ENEMA133 M2 PR (20:59)
[2017-02-15 21:44] LABS: CHLORIDE 113 mEq/L (99-109); SODIUM 141 mEq/L (136-147)
[2017-02-15 21:45] LABS: GLUCOSE 165 mg/dL (70-99)
[2017-02-15 21:45] LABS: UR CREATININE CONCENTRATION 124.8 MG/DL
[2017-02-15 21:47] LABS: ANION GAP 17 MEQ/L (2-14)
[2017-02-15 21:49] LABS: GFR ESTIMATE (CALCULATED) 11 mL/min/
[2017-02-15 21:50] LABS: UREA NITROGEN (BUN) 50 mg/dL (9-23)
[2017-02-15 21:59] LABS: POTASSIUM 6.4 mEq/L (3.7-5.4)
[2017-02-15 23:15] VITALS: BP 110/55
[2017-02-16 03:20] VITALS: BP 123/59
[2017-02-16 06:45] LABS: EOSINOPHIL (%) 0.6 % (0-5); EOSINOPHIL COUNT 0.1 K/uL (0-0.3); HEMATOCRIT 34.3 % (36.0-46.0); IMMATURE GRANULOCYTE (%) 0.3 % (0.0-0.7); INSTRUMENT ABS NEUTROPHIL CT 9.5 K/uL; LYMPHOCYTE COUNT 1.9 K/uL (1.0-2.8); MCH 27.1 PG (29.0-34.0); MCHC 30.6 G/DL (30.0-36.0); MCV 88.4 FL (83-99); MEAN PLAT.VOLUME 10.7 uM^3 (9.5-12.4); MONOCYTE (%) 7.9 % (3-12); NEUTROPHIL (%) 75.8 % (45-76); NEUTROPHIL COUNT 9.5 K/uL (1.8-6.4); PLATELET COUNT 312 K/uL (156-360); RBC DIS.WIDTH-CV 19.5 % (11.8-14.6); RBC DIS.WIDTH-SD 62.8 % (39-53); RED BLOOD COUNT 3.88 M/uL (3.80-5.20); WHITE BLOOD COUNT 12.6 K/uL (4.1-10.2)
[2017-02-16 07:12] LABS: ANION GAP 15 MEQ/L (2-14); CHLORIDE 108 MEQ/L (99-109); GFR ESTIMATE (CALCULATED) 12 mL/min/; GLUCOSE 206 mg/dL (70-99); SAMPLE HEMOLYSIS CHECK 0; SAMPLE ICTERIC CHECK 0; SAMPLE LIPEMIA CHECK 0; SODIUM 139 MEQ/L (136-147); UREA NITROGEN (BUN) 51 mg/dL (9-23)
[2017-02-16 07:15] LABS: POTASSIUM 6.1 MEQ/L (3.7-5.4)
[2017-02-16 07:44] VITALS: BP 138/61
[2017-02-16 08:22] LABS: POINT-OF-CARE METER ID UU14174216
[2017-02-16 09:22] LABS: TROP-I INTERPRETATION NEGATIVE; TROPONIN-I 0.03 ng/mL (0.0-0.30)
[2017-02-16 11:25] LABS: POINT-OF-CARE METER ID UU14174216
[2017-02-16 12:23] VITALS: BP 141/69
[2017-02-16 16:24] LABS: POINT-OF-CARE METER ID UU14174216
[2017-02-16 17:00] VITALS: BP 102/63
[2017-02-16 18:10] LABS: TROP-I INTERPRETATION NEGATIVE; TROPONIN-I 0.04 ng/mL (0.0-0.30)
[2017-02-16 19:00] VITALS: BP 175/81
[2017-02-16 20:56] LABS: POINT-OF-CARE METER ID UU13113781
[2017-02-17] VITALS (7 sets, daily range): BP systolic 121–160; BP diastolic 59–83
[2017-02-17 04:53] LABS: EOSINOPHIL (%) 1.8 % (0-5); EOSINOPHIL COUNT 0.2 K/uL (0-0.3); HEMATOCRIT 34.6 % (36.0-46.0); IMMATURE GRANULOCYTE (%) 0.4 % (0.0-0.7); IMMATURE GRANULOCYTE COUNT 0.1 K/uL; INSTRUMENT ABS NEUTROPHIL CT 8.2 K/uL; LYMPHOCYTE COUNT 2.5 K/uL (1.0-2.8); MCH 27.9 PG (29.0-34.0); MCHC 32.9 G/DL (30.0-36.0); MCV 84.8 FL (83-99); MEAN PLAT.VOLUME 9.7 uM^3 (9.5-12.4); MONOCYTE (%) 10.9 % (3-12); MONOCYTE COUNT 1.3 K/uL (0-0.8); NEUTROPHIL (%) 66.6 % (45-76); NEUTROPHIL COUNT 8.2 K/uL (1.8-6.4); PLATELET COUNT 304 K/uL (156-360); RBC DIS.WIDTH-CV 19.2 % (11.8-14.6); RBC DIS.WIDTH-SD 58.7 % (39-53); RED BLOOD COUNT 4.08 M/uL (3.80-5.20); WHITE BLOOD COUNT 12.3 K/uL (4.1-10.2)
[2017-02-17 04:58] LABS: CHLORIDE 111 mEq/L (99-109); POTASSIUM 5.1 mEq/L (3.7-5.4); SODIUM 141 mEq/L (136-147)
[2017-02-17 05:01] LABS: ANION GAP 12 MEQ/L (2-14)
[2017-02-17 05:04] LABS: GFR ESTIMATE (CALCULATED) 13 mL/min/
[2017-02-17 05:05] LABS: UREA NITROGEN (BUN) 50 mg/dL (9-23)
[2017-02-17 05:08] LABS: GLUCOSE 54 mg/dL (70-99)
[2017-02-17 06:41] LABS: POINT-OF-CARE METER ID UU14314088
[2017-02-17 11:50] LABS: POINT-OF-CARE METER ID UU13113698; POINT-OF-CARE USER ID ENVKC36
[2017-02-17 19:37] LABS: TYPE OF FLUID PARACENTESIS
[2017-02-17 20:15] LABS: BODY FLUID EOSINOPHILS 0 % (0-25); BODY FLUID RBC'S < 1000 /MM^3 (0-100); BODY FLUID WBC'S 59 /MM^3 (0-500); MONONUCLEAR WBC'S 66 %; POLYNUCLEAR WBC'S 34 % (0-25)
[2017-02-17 21:15] LABS: BODY FLUIDS MISC. < 1.5; COMMENT MANY MACROPHAGES SEE
[2017-02-17 22:55] LABS: POINT-OF-CARE METER ID UU13113698
[2017-02-18 04:47] VITALS: BP 137/71
[2017-02-18 06:10] LABS: ANION GAP 14 MEQ/L (2-14); CHLORIDE 107 MEQ/L (99-109); GFR ESTIMATE (CALCULATED) 16 mL/min/; POTASSIUM 5.1 MEQ/L (3.7-5.4); SAMPLE HEMOLYSIS CHECK 0; SAMPLE ICTERIC CHECK 0; SAMPLE LIPEMIA CHECK 0; SODIUM 142 MEQ/L (136-147); UREA NITROGEN (BUN) 47 mg/dL (9-23)
[2017-02-18 06:17] LABS: GLUCOSE 223 mg/dL (70-99)
[2017-02-18 06:26] LABS: POINT-OF-CARE METER ID UU13113698
[2017-02-18 07:48] VITALS: BP 126/64
[2017-02-18 11:11] VITALS: BP 128/74
[2017-02-18 12:02] LABS: POINT-OF-CARE METER ID UU13113698; POINT-OF-CARE USER ID ENVKC36
[2017-02-18 17:12] VITALS: BP 131/72
[2017-02-18 18:02] LABS: POINT-OF-CARE METER ID UU14314088
[2017-02-18 20:48] VITALS: BP 122/70
[2017-02-19 00:16] LABS: POINT-OF-CARE METER ID UU14174216
[2017-02-19 00:34] VITALS: BP 129/60
[2017-02-19 04:15] VITALS: BP 125/75
[2017-02-19 05:38] LABS: EOSINOPHIL (%) 4.4 % (0-5); EOSINOPHIL COUNT 0.4 K/uL (0-0.3); HEMATOCRIT 32.4 % (36.0-46.0); IMMATURE GRANULOCYTE (%) 0.4 % (0.0-0.7); INSTRUMENT ABS NEUTROPHIL CT 5.1 K/uL; LYMPHOCYTE COUNT 1.9 K/uL (1.0-2.8); MCH 28.3 PG (29.0-34.0); MCV 85.7 FL (83-99); MONOCYTE (%) 11.3 % (3-12); MONOCYTE COUNT 0.9 K/uL (0-0.8); NEUTROPHIL (%) 60.4 % (45-76); NEUTROPHIL COUNT 5.1 K/uL (1.8-6.4); RBC DIS.WIDTH-CV 19.5 % (11.8-14.6); RBC DIS.WIDTH-SD 59.2 % (39-53); RED BLOOD COUNT 3.78 M/uL (3.80-5.20); WHITE BLOOD COUNT 8.4 K/uL (4.1-10.2)
[2017-02-19 06:03] LABS: MEAN PLAT.VOLUME 9.7 uM^3 (9.5-12.4); PLAT.SUFFICIENCY ADEQUATE
[2017-02-19 06:08] LABS: PLATELET COUNT 212 K/uL (156-360)
[2017-02-19 06:26] LABS: POINT-OF-CARE METER ID UU13113698
[2017-02-19 06:36] LABS: ALKALINE PHOSPHATASE 170 IU/L (3-129); ANION GAP 11 MEQ/L (2-14); CHLORIDE 107 MEQ/L (99-109); GFR ESTIMATE (CALCULATED) 21 mL/min/; GLUCOSE 283 mg/dL (70-99); POTASSIUM 4.2 MEQ/L (3.7-5.4); SAMPLE HEMOLYSIS CHECK 0; SAMPLE ICTERIC CHECK 0; SAMPLE LIPEMIA CHECK 0; SODIUM 144 MEQ/L (136-147); TOTAL BILIRUBIN 0.6 MG/DL (0.0-1.0); UREA NITROGEN (BUN) 42 mg/dL (9-23)
[2017-02-19 07:07] VITALS: BP 118/73
[2017-02-19 11:39] VITALS: BP 127/86
[2017-02-19 15:08] VITALS: BP 154/83
[2017-02-19 17:25] LABS: POINT-OF-CARE METER ID UU13113698; POINT-OF-CARE USER ID NUTSLF44
[2017-02-19 19:01] VITALS: BP 159/79
[2017-02-19 23:58] LABS: POINT-OF-CARE METER ID UU14174216
[2017-02-20 05:44] LABS: ANION GAP 15 MEQ/L (2-14); CHLORIDE 106 MEQ/L (99-109); POTASSIUM 4.6 MEQ/L (3.7-5.4); SAMPLE HEMOLYSIS CHECK 1; SAMPLE ICTERIC CHECK 0; SAMPLE LIPEMIA CHECK 0; SODIUM 140 MEQ/L (136-147)
[2017-02-20 05:49] LABS: GFR ESTIMATE (CALCULATED) 25 mL/min/; GLUCOSE 302 mg/dL (70-99); UREA NITROGEN (BUN) 39 mg/dL (9-23)
[2017-02-20 05:52] LABS: POINT-OF-CARE METER ID UU14314088
[2017-02-20 12:06] LABS: POINT-OF-CARE METER ID UU14314088
== END 2017-02-20 18:22 | DRG 682 ==
LOC: EME 16:19 → EDOF 18:50 → 4EAST 18:50 → ENRESERV 19:14 → 4EAST 21:57 → ENRESERV 02-19 18:38 → 4EAST 02-19 18:38
PROVIDERS: Emergency Medicine; Family Medicine; Internal Medicine; Internal Medicine Gastroenterology; Internal Medicine Nephrology
PROC: 0W9G3ZZ Drainage of Peritoneal Cavity, Percutaneous Approach (ICD-10-PCS; principal; 2017-02-17)
DX: N17.0 Acute kidney failure with tubular necrosis (principal); B37.9 Candidiasis, unspecified; G93.49 Other encephalopathy; J44.0 Chronic obstructive pulmonary disease with (acute) lower respiratory infection; J18.9 Pneumonia, unspecified organism; J96.11 Chronic respiratory failure with hypoxia; C22.0 Liver cell carcinoma; E11.40 Type 2 diabetes mellitus with diabetic neuropathy, unspecified; R18.8 Other ascites; E87.5 Hyperkalemia; E86.0 Dehydration; E87.2 Acidosis; N39.0 Urinary tract infection, site not specified; I11.0 Hypertensive heart disease with heart failure; I50.9 Heart failure, unspecified; L03.115 Cellulitis of right lower limb; J98.11 Atelectasis; L03.116 Cellulitis of left lower limb; F03.90 Unspecified dementia, unspecified severity, without behavioral disturbance, psychotic disturbance, mood disturbance, and anxiety; G93.89 Other specified disorders of brain; D64.9 Anemia, unspecified; E66.9 Obesity, unspecified; Z68.41 Body mass index [BMI] 40.0-44.9, adult; E78.5 Hyperlipidemia, unspecified; G40.909 Epilepsy, unspecified, not intractable, without status epilepticus; G43.909 Migraine, unspecified, not intractable, without status migrainosus; G47.30 Sleep apnea, unspecified; I25.10 Atherosclerotic heart disease of native coronary artery without angina pectoris; I87.2 Venous insufficiency (chronic) (peripheral); I87.8 Other specified disorders of veins; I83.009 Varicose veins of unspecified lower extremity with ulcer of unspecified site; L97.909 Non-pressure chronic ulcer of unspecified part of unspecified lower leg with unspecified severity; K21.9 Gastro-esophageal reflux disease without esophagitis; K58.9 Irritable bowel syndrome, unspecified; M19.90 Unspecified osteoarthritis, unspecified site; Z66 Do not resuscitate; F41.9 Anxiety disorder, unspecified; F32.9 Major depressive disorder, single episode, unspecified; Z85.828 Personal history of other malignant neoplasm of skin; Z87.11 Personal history of peptic ulcer disease; Z86.73 Personal history of transient ischemic attack (TIA), and cerebral infarction without residual deficits; Z87.442 Personal history of urinary calculi; Z95.5 Presence of coronary angioplasty implant and graft
CPT/HCPCS: 49083; 70450; 70551; 71010; 74176; 80048; 80048 91; 80053; 80069; 80076; 81003; 82105 90; 82140; 82436; 82550; 82570; 82948; 83605; 83880; 84100; 84133; 84300; 84484; 84540; 85025; 85610; 85730; 87040; 87070; 87086; 87106; 87205; 88108; 89051; 92610 GN; 93005; 94799; 99281; 99285; J0456; J0610; J0692; J1170; J1815; J1940; J1953; J2060; J7050; J7070; J7120